=== PATIENT | female | born 1970 | race Caucasian/White ===

== ENCOUNTER → 2022-12-03 | Outpatient (CLI) | payer BC ==
--- NOTE | 2022-12-04 08:20 | MM ---
Reason for Exam: Screening (asymptomatic). Last screening mammogram was performed 12 month(s) ago. Patient History: Menarche at age 13. First Full-Term at age 22. Postmenopausal. Hormonal Contraceptives, from age 17 until age 25. Maternal aunt had breast cancer, age 66. Risk Values: Dorys 5 year model risk: 0.9%. NCI Lifetime model risk: 7.1%. Prior Study Comparison: 04/17/2008 Bilateral Screening Mammogram, [facility]. 11/02/2012 Bilateral Screening Mammogram, [facility] 11/28/2021 Bilateral Screening Mammogram, [facility]. Tissue Density: There are scattered fibroglandular densities. Findings: Analyzed By CAD. There is no suspicious group of microcalcifications or new suspicious mass in either breast. Overall Assessment: Negative, BI-RAD 1 Management: Screening Mammogram of both breasts in 1 year. A clinical breast exam by your physician is recommended on an annual basis and results should be correlated with mammographic findings. Electronically signed and approved by: Boris Alberto D.O.
== END | disposition home or self-care (01) ==
LOC: RADMAMWWP 09:57
PROVIDERS: ATTEND Internal Medicine
DX: Z12.31 Encounter for screening mammogram for malignant neoplasm of breast (principal); Z78.0 Asymptomatic menopausal state; Z80.3 Family history of malignant neoplasm of breast
CPT/HCPCS: 77063; 77067

== ENCOUNTER → 2023-01-18 | Outpatient (CLI) | payer BC ==
--- NOTE | 2023-01-18 15:22 | XR ---
EXAMINATION TYPE: XR KUB DATE OF EXAM: 01/18/2023 COMPARISON: NONE HISTORY: Pain TECHNIQUE: Single supine KUB image of the abdomen is obtained FINDINGS: Small bowel demonstrates no evidence for dilatation or air fluid levels. Gas and fecal material is seen in non-distended colon. No convincing evidence for pneumoperitoneum. No unusual calcifications. The lung bases are clear. The osseous structures are intact. IMPRESSION: 1. Overall nonobstructive bowel gas pattern.
== END | disposition home or self-care (01) ==
LOC: RADXRMAIN 15:04
PROVIDERS: ATTEND Internal Medicine
DX: R10.9 Unspecified abdominal pain (principal); R31.9 Hematuria, unspecified
CPT/HCPCS: 74018

== ENCOUNTER 2023-06-01 09:55 | Day surgery (SDC) | payer BC ==
[2023-05-26 13:58] VITALS: BMI 29.1
[~2023-06-01 09:55] MED LIST: LACTATED RINGERS 1,000 ML IV SCH
[2023-06-01 10:28] VITALS: RESP 16; TEMP 97.2
[2023-06-01] MEDS ORDERED: PROPOFOL 10 MG/ML 20 ML VIAL IV ONE (10:31)
[2023-06-01] MEDS ORDERED: LIDOCAINE 2% INJ 20 MG/ML (2 ML VIAL) ONE (10:31)
--- NOTE | 2023-06-01 10:35 | P.GSHP ---
History of Present Illness H&P Date: 06/01/23 Chief Complaint: Colon cancer screening 52-year-old female here for colonoscopy. She has not had one previously. No bowel complaints. No family history of colon cancer. Past Medical History Past Medical History: No Reported History History of Any Multi-Drug Resistant Organisms: None Reported Additional Past Surgical History / Comment(s): VERICOSE VEIN PROC. WISDOM TEETH EXTRACTED Past Anesthesia/Blood Transfusion Reactions: No Reported Reaction Past Psychological History: No Psychological Hx Reported Smoking Status: Former smoker Past Alcohol Use History: Occasional Additional Past Alcohol Use History / Comment(s): SMOKED IN HER EARLY 20'S Past Drug Use History: None Reported Medications and Allergies Home Medications Medication Instructions Recorded Confirmed Type No Known Home Medications 05/26/23 06/01/23 History Allergies Allergy/AdvReac Type Severity Reaction Status Date / Time No Known Allergies Allergy Verified 06/01/23 10:14 Surgical - Exam Vital Signs Temp Pulse Resp BP Pulse Ox 97.2 F L 79 16 149/79 99 06/01/23 10:26 06/01/23 10:26 06/01/23 10:26 06/01/23 10:26 06/01/23 10:26 Physical exam: General: Well-developed, well-nourished HEENT: Normocephalic, sclerae nonicteric Abdomen: Nontender, nondistended Extremities: No edema Neuro: Alert and oriented Assessment and Plan (1) Colon cancer screening Narrative/Plan: Will proceed with colonoscopy at this time. Current Visit: Yes Status: Acute Code(s): Z12.11 - SNOMED Code(s): 258084599
--- NOTE | 2023-06-01 10:50 | P.PCN ---
Date of Procedure: 06/01/23 Procedure(s) Performed: PREOPERATIVE DIAGNOSIS: Colon cancer screening POSTOPERATIVE DIAGNOSIS: Descending colon polyp PROCEDURE: Colonoscopy with snare polypectomy ANESTHESIA: MAC SURGEON: Babak Martinez M.D. SPECIMENS: Descending colon polyp ENDOSCOPIC PROCEDURE: The patient was placed on the endoscopy table in the left decubitus position. The Olympus colonoscope was inserted into the anus and passed under direct visualization to the base of the cecum. The appendiceal orifice was visualized. From that point the scope was slowly withdrawn inspecting all surfaces carefully. There were no neoplastic inflammatory or polypoid lesions throughout the cecum, ascending, and transverse colon. In the descending colon a small polyp was seen and removed using the snare with cautery technique. The remainder of the sigmoid and rectum appeared normal. There was no visible diverticulosis. Digital rectal examination was normal. The patient was taken to the recovery room in stable condition per anesthesia guidelines. RECOMMENDATIONS: Await biopsy results. Will contact patient with timing for her next colonoscopy.
[2023-06-01 11:20] VITALS: BP 137/89; PULSE 76
== END 2023-06-01 11:27 | disposition home or self-care (01) ==
LOC: ORWHC2ENDO 09:55
PROVIDERS: ATTEND Surgery
DX: Z12.11 Encounter for screening for malignant neoplasm of colon (principal); D12.4 Benign neoplasm of descending colon; Z87.891 Personal history of nicotine dependence
CPT/HCPCS: 88305; 45385; J2704; J2001

== ENCOUNTER → 2023-06-22 | Outpatient (CLI) | payer BC ==
[2023-06-22 15:00] VITALS: BP 135/85; PULSE 74; RESP 17; TEMP 98.3
--- NOTE | 2023-06-22 16:25 | P.HPOB ---
History of Present Illness H&P Date: 06/22/23 Chief Complaint: The patient is here for her routine gynecologic exam. This is a 52-year-old with an LMP of September 2021. The patient is here to establish with this office. She states she has had occasional hot flashes, mostly at night. It has been about 5 years since her last pelvic exam. She has been experiencing vaginal dryness since her menstrual periods stopped 1-1/2 years ago. She is otherwise without gynecologic complaints. She had a mammogram on 12/03/2022 which was benign. Review of Systems Her weight has fluctuated over the past year. She lost about 12 pounds, but has gained it back. She denies respiratory, cardiac, or GI problems. Past Medical History Past Medical History: No Reported History Additional Past Medical History / Comment(s): Osteopenia. 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 History of Any Multi-Drug Resistant Organisms: None Reported Additional Past Surgical History / Comment(s): VERICOSE VEIN PROC. WISDOM TEETH EXTRACTED. Colonoscopy 2021(next after 7yr) Past Anesthesia/Blood Transfusion Reactions: No Reported Reaction Past Psychological History: No Psychological Hx Reported Smoking Status: Former smoker Past Alcohol Use History: Occasional (6 drinks per week.) Additional Past Alcohol Use History / Comment(s): SMOKED IN HER EARLY 20'S Past Drug Use History: None Reported Additional History: She has been since 1991. 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 - Past Family History Mother Family Medical History: Hypertension Additional Family Medical History / Comment(s): Osteoporosis, Uw's esophagus, and hiatal hernia. Maternal grandmother had breast cancer. Father Family Medical History: Myocardial Infarction (MS) Additional Family Medical History / Comment(s): . Medications and Allergies Home Medications Medication Instructions Recorded Confirmed Type Calcium Carbonate [Calcium] 600 mg PO DAILY 06/22/23 06/22/23 History Allergies Allergy/AdvReac Type Severity Reaction Status Date / Time No Known Allergies Allergy Verified 06/22/23 14:57 Exam Vital Signs Temp Pulse Resp BP Pulse Ox 06/22/23 14:58 98.3 F 74 17 135/85 97 Intake and Output 06/22/23 06/22/23 06/22/23 06:59 14:59 22:59 Other: Weight 81.647 kg Height 5 feet 5 inches, weight 180 pounds, BMI 30.0. This is a well-developed well-nourished white female who is alert and oriented times 3 in no acute distress. HEENT: Within normal limits. NECK: Supple without mass or thyromegaly. CHEST AND LUNGS: Clear to auscultation. HEART: Regular rate and rhythm. BREASTS: Are without mass or discharge. AXILLARY EXAM: Negative for adenopathy. BACK: Negative for CVA tenderness. ABDOMEN: Soft, nontender, without palpable masses. PELVIC EXAM: Normal external genitalia mild atrophy. Cervix and vagina appear normal with mild atrophy. There is no unusual discharge. There is no evidence of prolapse. The uterus is midposition, nongravid size and nontender. There are no palpable adnexal masses or tenderness. RECTAL EXAM: Rectovaginal exam is negative for mass or tenderness and is negative for occult blood. EXTREMITIES: Nontender. IMPRESSION: 1. 52-year-old menopausal female with normal gynecologic exam. 2. Dyspareunia secondary to vaginal dryness related to the menopausal change. 3. History of osteopenia from her 10/22/2022 bone density test. PLAN: 1. Pap smear cotest was performed. 2. Self breast awareness was discussed with the patient. We have also discussed symptoms associated with inflammatory breast cancer. 3. Screening mammogram was done on 12/03/2022 and was benign. She will repeat this after 1 year. The order slip was given to the patient for this. 4. Osteoporosis prevention was discussed. I have stressed the importance of adequate calcium, vitamin D and regular exercise. Recommended amounts of calcium and vitamin D were also discussed. We will plan on repeating the bone density test in approximately 2-3 years. 5. Trial of Premarin vaginal cream. She is to insert 1 g into the vagina 2 times weekly. One sample tube was given to the patient. The electronic prescription will be sent to [facility] on [facility]. 6. She was advised to return in one year for her annual well woman exam and as needed.
== END ==
LOC: WWCWWP 14:30
PROVIDERS: ATTEND Obstetrics & Gynecology
DX: M85.80 Other specified disorders of bone density and structure, unspecified site (principal); N94.10 Unspecified dyspareunia; Z78.0 Asymptomatic menopausal state; Z80.3 Family history of malignant neoplasm of breast; Z87.891 Personal history of nicotine dependence

== ENCOUNTER → 2024-06-01 | Outpatient (CLI) | payer BC ==
--- NOTE | 2024-06-01 10:46 | CT ---
CT urogram with and without contrast HISTORY: Urinary tract infection. COMPARISON: None. TECHNIQUE: Multiple axial images are obtained through the abdomen and pelvis before and after the une ventful administration of nonionic IV contrast. Delayed postcontrast images were obtained. FINDINGS: Lung bases are clear. On the pre-IV contrast images, there are no renal calcifications or ureteral calcifications. There a re no gallstones. The gallbladder is normal and there is no distention or biliary ductal dilatation. There are no focal masses within the liver, pancreas, spleen or adrenal glands and there is no organo megaly. Kidneys excrete contrast promptly and symmetrically and there is no solid renal mass, hydronephrosis or filling defect within the renal collecting systems, ureters or urinary bladder. The bowel loops are normal in caliber and there is no dilatation or obstruction. No inflammatory pena ges are identified in the bowel wall or mesentery. There is no free intraperitoneal air or fluid. There is a sharply marginated 3.5 cm cystic mass in the left adnexa. This is likely benign cysts in t he patient this age group pelvic ultrasound is recommended for further evaluation. The osseous structures are intact. IMPRESSION: 1. No renal masses, renal filling defects within the collecting systems, renal calculi or hydronephro sis. 2. Unremarkable urinary bladder. 3. 3.5 cm cystic mass in left adnexa and further evaluation with pelvic ultrasound is recommended. No significant abnormality seen.. [facility], , 06/01/2024 10:43 AM
== END | disposition home or self-care (01) ==
LOC: RADCTMAIN 09:21
PROVIDERS: ATTEND Internal Medicine
DX: N39.0 Urinary tract infection, site not specified (principal)
CPT/HCPCS: 74178; 74400; Q9967

== ENCOUNTER → 2024-06-06 | Outpatient (CLI) | payer BC | END | disposition home or self-care (01) | LOC: LABWHC1 12:34 | PROVIDERS: ATTEND Internal Medicine | DX: N83.202 Unspecified ovarian cyst, left side (principal) | CPT/HCPCS: 36415; 86304 ==

== ENCOUNTER → 2024-06-27 | Outpatient (CLI) | payer BC ==
[2024-06-27 08:02] VITALS: BP 130/79; PULSE 79; RESP 16; TEMP 98.2
--- NOTE | 2024-06-27 08:46 | P.HPOB ---
History of Present Illness H&P Date: 06/27/24 Chief Complaint: The patient is here for her routine gynecologic exam and ma mmogram. This is a 53-year-old G2, P2 with an LMP of 2021. The patient states she started having urinary symptoms consisting of bladder pressure, bladder irritation and occasional right-sided sharp pains. The patient was treated for a UTI. She did have some brief relief, but the urinary symptoms returned. She was treated for 2 more UTIs with different antibiotics with positive urinalysis testing, but both times the urine culture was negative. She states the more severe bladder pressure symptoms have improved, but she still has some pressure in the area of the bladder. She also continues to have occasional right sided sharp pains which last about 2 seconds. This can happen about 3-4 times per day. She started using the estrogen vaginal cream to see if this would help with some of her symptoms. She had a CT urogram earlier this month which showed a 3.5 cm left adnexal cyst. CA125 test was normal. The patient went for a pelvic ultrasound and this was done at [facility]. This was done about 1 week ago. She states she saw the results and that showed a left ovarian cyst and some nabothian cysts of the cervix. She is otherwise without gynecologic complaints and denies any postmenopausal bleeding. Review of Systems The patient has lost 10 pounds over the last year. She states she was briefly on Wegovy for weight loss, but this was discontinued since her insurance no longer covered it. She denies respiratory, cardiac, or G.I. problems. : See the HPI. Past Medical History Past Medical History: No Reported History Additional Past Medical History / Comment(s): Osteopenia. 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 History of Any Multi-Drug Resistant Organisms: None Reported Additional Past Surgical History / Comment(s): VERICOSE VEIN PROC. WISDOM TEETH EXTRACTED. Colonoscopy 2021(next after 7yr) Past Anesthesia/Blood Transfusion Reactions: No Reported Reaction Past Psychological History: No Psychological Hx Reported Smoking Status: Former smoker Past Alcohol Use History: Occasional (3-4 drinks per week.) Additional Past Alcohol Use History / Comment(s): SMOKED IN HER EARLY 20'S Past Drug Use History: None Reported Additional History: She has been since 1991. 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 - Past Family History Mother Family Medical History: Hypertension Additional Family Medical History / Comment(s): Osteoporosis, Wu's esophagus, and hiatal hernia. Maternal grandmother had breast cancer. Father Family Medical History: Myocardial Infarction (SD) Additional Family Medical History / Comment(s): . Medications and Allergies Home Medications Medication Instructions Recorded Confirmed Type Calcium Carbonate [Calcium] 600 mg PO DAILY 06/22/23 06/27/24 History Estrogens, Conjugated Cream 1 applicator VAGINAL DIRECTED 06/22/23 06/27/24 Rx [Premarin Vaginal Cream] #42.5 gm Allergies Allergy/AdvReac Type Severity Reaction Status Date / Time No Known Allergies Allergy Verified 06/27/24 07:58 Exam Vital Signs Temp Pulse Resp BP Pulse Ox 06/27/24 07:59 98.2 F 79 16 130/79 98 Intake and Output 06/26/24 06/27/24 06/27/24 22:59 06:59 14:59 Other: Weight 77.111 kg Height 5 feet 5 inches, weight 170 pounds, BMI 28.3 This is a well-developed well-nourished white female who is alert and oriented times 3 in no acute distress. HEENT: Within normal limits. NECK: Supple without mass or thyromegaly. CHEST AND LUNGS: Clear to auscultation. HEART: Regular rate and rhythm. BREASTS: Are without mass or discharge. AXILLARY EXAM: Negative for adenopathy. BACK: Negative for CVA tenderness. ABDOMEN: Soft, nontender, without palpable masses. PELVIC EXAM: Normal external genitalia minimal atrophy. Cervix and vagina appear normal with minimal atrophy. There is no unusual discharge. There is no cervical motion tenderness there is no evidence of prolapse. The uterus is midposition, nongravid size and nontender. There are no palpable adnexal masses or tenderness. There is mild bladder tenderness on palpation. RECTAL EXAM: Rectovaginal exam is negative for mass or tenderness and is negative for occult blood. EXTREMITIES: Nontender. IMPRESSION: 1. 53-year-old menopausal female with mild bladder tenderness on exam with otherwise unremarkable gynecologic exam. 2. 3.5 cm left adnexal cyst seen by CT urogram. The patient had a pelvic ultrasound which apparently showed a left adnexal cyst, but I have not seen the report. 3. 2+ months of bladder pressure with UTI symptoms, not improved with 3 courses of antibiotics and urine cultures have been negative. Possible interstitial cystitis symptoms. It is also possible that the ovarian cyst could cause some bladder pressure, but at 3.5 cm, I doubt that it would be causing these types of symptoms with the right sided sharp pains. 4. History of osteopenia. PLAN: 1. Pap smear was deferred since she had a negative Pap smear cotest on 06/02/2023. 2. Self breast awareness was discussed with the patient. We have also discussed symptoms associated with inflammatory breast cancer. 3. Screening mammogram will be done today. 4. Patient will have a copy of her recent pelvic ultrasound sent to me so I can review it. This was done at [facility]. 5. Since she has had 3 urine tests for suspected infection in the last month or so, I do not feel the need to repeat this again. I recommended that she look into making a urology appointment for further evaluation to rule out other bladder causes such as interstitial cystitis. She can also look into a special diet for interstitial cystitis 6. When I do get the pelvic ultrasound report, I can make further recommendations. If this is benign appearing approximately 3.5 cm, we will probably plan on repeating the pelvic ultrasound in 4 to 6 months. 7. Continue Premarin vaginal cream as directed. She has been using this for dyspareunia and I have also asked her to apply a small amount around to the ur inary opening to see if this can help with some of her symptoms. The electronic prescription will be sent to [facility] pharmacy. 8. Osteoporosis prevention was discussed. 9. She was advised to return in one year for her annual well woman exam and as needed.
--- NOTE | 2024-06-28 11:19 | MM ---
Reason for Exam: Screening (asymptomatic). Last mammogram was performed 1 year(s) and 6 month(s) ago. Patient History: Menarche at age 13. First Full-Term at age 22. Postmenopausal. Hormonal Contraceptives, from age 17 until age 25. Maternal aunt had breast cancer, age 66. Risk Values: Dorys 5 year model risk: 0.9%. NCI Lifetime model risk: 6.9%. Prior Study Comparison: 11/02/2012 Bilateral Screening Mammogram, [facility]. 11/28/2021 Bilateral Screening Mammogram, [facility]. 12/03/2022 Bilateral MG 3D screening mammo w/cad, [facility]. Tissue Density: There are scattered areas of fibroglandular density. Findings: Analyzed By CAD. There is no suspicious group of microcalcifications or new suspicious mass in either breast. Overall Assessment: Negative, BI-RAD 1 Management: Screening Mammogram of both breasts in 1 year. . Patient should continue monthly self-breast exams. A clinical breast exam by your physician is recommended on an annual basis. This exam should not preclude additional follow-up of suspicious palpable abnormalities. Note on Dorys scores and lifetime risk: 1. A Dorys score greater than 3% is considered moderate risk. If this is the case, consider specialist referral to assess eligibility for a risk reducing agent. 2. If overall lifetime risk for the development of breast cancer is 20% or higher, the patient may qualify for future screening with alternating mammogram and breast MRI. [facility], , 06/28/2024 11:16 AM. Electronically signed and approved by: Solange Hollingsworth M.D. Radiologist
== END ==
LOC: WWCWWP 07:46
PROVIDERS: ATTEND Obstetrics & Gynecology
CPT/HCPCS: 77063; 77067